=== PATIENT | female | born 1960 | race Two or more races ===

== ENCOUNTER 2018-04-26 05:35 | Emergency (ER) | payer OTHER ==
[~2018-04-26] VITALS: Ht 149.9 cm; Wt 72.6 kg
[~2018-04-26 05:35] MED LIST: DEPAKOTE ER250 MG; METFORMIN HCL500 MG; PRISTIQ ER50 MG PO
[2018-04-26] MEDS ORDERED: COZAAR25 MG (05:45)
[2018-04-26] MEDS ORDERED: TUSSI-PRES LIQ118 ML PO (10:40)
[2018-04-26] MEDS ORDERED: ALBUTEROL2.5 MG/3 M IH (10:40)
[2018-04-26] MEDS ORDERED: OSEL75CA PO (10:40)
== END 2018-04-26 11:19 | disposition home or self-care (01) ==
LOC: ER 05:35
DX: J11.1 Influenza due to unidentified influenza virus with other respiratory manifestations (principal); J40 Bronchitis, not specified as acute or chronic

== ENCOUNTER 2019-06-15 11:11 | Emergency (ER) | payer OTHER ==
[~2019-06-15] VITALS: Ht 149.9 cm; Wt 72.6 kg
[~2019-06-15 11:11] MED LIST changes: +ALBUTEROL2.5 MG/3 M IH; +COZAAR25 MG; +OSEL75CA PO; +TUSSI-PRES LIQ118 ML PO
[2019-06-15] MEDS ORDERED: SORBUGEN NR 15474 ML (12:01)
== END 2019-06-15 16:47 | disposition home or self-care (01) ==
LOC: ER 11:11
DX: J45.901 Unspecified asthma with (acute) exacerbation (principal); J06.9 Acute upper respiratory infection, unspecified

== ENCOUNTER 2020-04-08 10:32 | Emergency (ER) | payer OTHER ==
[~2020-04-08] VITALS: Ht 149.9 cm; Wt 72.6 kg
[~2020-04-08 10:32] MED LIST changes: +SORBUGEN NR 15474 ML
== END 2020-04-08 14:58 | disposition home or self-care (01) ==
LOC: ER
DX: R51 Headache (principal); R42 Dizziness and giddiness; H66.92 Otitis media, unspecified, left ear

== ENCOUNTER → 2020-10-25 | Emergency (ER) | payer OTHER ==
[~2020-10-25] VITALS: Ht 149.9 cm; Wt 72.6 kg
[~2020-10-25] MED LIST changes: +KETO10TA2 PO; +PEPCID AC20 MG PO; +ZITHROMAX500 MG PO
== END | disposition home or self-care (01) ==
LOC: ER 09:53
DX: H60.8X3 Other otitis externa, bilateral (principal); J02.9 Acute pharyngitis, unspecified

== ENCOUNTER 2020-11-28 08:32 | Emergency (ER) | payer OTHER ==
[~2020-11-28] VITALS: Ht 149.9 cm; Wt 70.8 kg
== END 2020-11-28 11:24 | disposition home or self-care (01) ==
LOC: ER 08:32
DX: M79.7 Fibromyalgia (principal); M54.2 Cervicalgia; R07.89 Other chest pain; M54.5 Low back pain; M62.838 Other muscle spasm; M62.830 Muscle spasm of back

== ENCOUNTER 2020-12-22 09:37 | Inpatient (IN) | payer OTHER ==
[~2020-12-22] VITALS: Ht 149.9 cm; Wt 70.3 kg
--- NOTE | 2020-12-22 09:50 | NUR ---
PACIENTE ALERTA Y ORIENTADA EN HANANE AUBREY ESFERAS, REFIERE TOS SECA, DOLOR ESPALDA JANINE Y MEDIA, MOLESTIA EN EL PECHO. PACIENTE REFIERE QUE LOS SINTOMAS COMENZARON LUEGO DE RECIBIR 2DA DOSIS DE VACUNA MODERNA CONTRA EL COVID 19 EL .
[2020-12-22] MEDS ORDERED: METFORMIN HCL500 M3 PO (09:53)
--- NOTE | 2020-12-22 10:35 | NUR ---
PACIENTE EVALUADA POR DRA. FERRIS. MRS. SORTO RECIBE A PACIENTE EN UNIDAD DE CHEST PAIN. SORTO COLECTA MUESTRAS DE LABORATORIO E INSERTA CATETER VENOSO A PACIENTE SIGUIENDO TECNICAS ASEPTICAS. SE CONECTA A PACIENTE A MONITOR CARDIACO Y OXIMETRIA DE PULSO. SE ORIENTA A PACIENTE SOBRE TRATAMIENTO. SORTO ADMINISTRA MEDICAMENTOS SHAN DIRECCTRICES MEDICAS, SE EDUCA A PACIENTE SOBRE LA INDICACION DE LOS MISMOS. SE MANTIENE A PACIENTE BAJO OBSERVACION POR CAMBIOS. PACIENTE CONSULTADA CON EL DR. PRESTON PAYAN.
--- NOTE | 2020-12-22 11:45 | NUR ---
SE LLEVA A PTE PARA REALIZAR PROCEDIMIENTO DE ECHO, SE LLEVA PTE EN KATHRYN POR ESCORTA CON MONITOR CARDIACO. NIKI YOON REFIERE DEJAR PTE EN ESTUDIO.
--- NOTE | 2020-12-22 15:04 | NUR ---
SE RECIBE PACIENTE FEMINA DE 60 ANOS DE EDAD UBICADA EN ANGELA DE EMERGENCIAS EN AREA DE CHEST PAIN EN CAMA CON BARABDAS ELEVADAS. PACIENTE ES ENTREGADA POR RN- SORTO CUAL ORIENTA QUE PACIENTE LLEGO A ANGELA POR DOLOR DE PECHO Y DIFICULTAD AL RESPIRAR. AL MOMENTO PACIENTE SE RECIBE ALERTA, CONCIENTE Y ORIENTADA X3 LA MISMA AMBULA SIN DIFICULTAD Y ESTA EN ESPERA DE MEDICNA INTERNA. PACIENTE MANTIENE AMIODARONE BAJANDO A 33ML/HRS Y EL MISMO COMENZO A LAS 14:30. SE MANTIENE A PACIENTE EN OBSERVACION POR CAMBIOS EN CONDICION Y CONTINUIDAD DE CHRIS. PACIENTE SE MANTIENE CONECTADA A MONITOR CARDIACO Y OXIMETRIA DE PULSO.
[2020-12-23] MEDS ORDERED: ATORVASTATIN CA10 MG (11:53)
[2020-12-23] MEDS ORDERED: LOSARTAN-HCTZ1 EACH (11:53)
[2020-12-26] MEDS ORDERED: IPRATROPIU0.2 MG/1 M IH (09:51)
[2020-12-26] MEDS ORDERED: BUDESONIDE0.5 MG/2 M IH (09:52)
[2020-12-26] MEDS ORDERED: TUSSIN DM LIQU118 ML PO (09:52)
[2020-12-26] MEDS ORDERED: TOPROL XL25 M1 PO (09:55)
[2020-12-26] MEDS ORDERED: ELIQUIS5 MG PO (09:55)
[2020-12-26] MEDS ORDERED: FLECAINIDE ACE100 MG PO (09:55)
== END 2020-12-26 11:42 | disposition home or self-care (01) | DRG 309 ==
LOC: ER 09:37 → SEC-K 19:26 → O/R 12-23 11:42 → SEC-K 12-23 12:00 → SURH 12-24 14:32
PROVIDERS: ADMIT Internal Medicine; ATTEND Internal Medicine
PROC: B24BYZZ Ultrasonography of Heart with Aorta using Other Contrast (ICD-10-PCS; principal; 2020-12-22)
PROC: BW24ZZZ Computerized Tomography (CT Scan) of Chest and Abdomen (ICD-10-PCS; 2020-12-22)
PROC: 4A12X4Z Monitoring of Cardiac Electrical Activity, External Approach (ICD-10-PCS; 2020-12-24)
DX: I48.91 Unspecified atrial fibrillation (principal); J45.901 Unspecified asthma with (acute) exacerbation; J91.8 Pleural effusion in other conditions classified elsewhere; J10.1 Influenza due to other identified influenza virus with other respiratory manifestations; J20.9 Acute bronchitis, unspecified; I10 Essential (primary) hypertension; E11.9 Type 2 diabetes mellitus without complications; Z20.822 Contact with and (suspected) exposure to COVID-19

== ENCOUNTER 2021-01-04 10:43 | Emergency (ER) | payer OTHER ==
[~2021-01-04] VITALS: Ht 149.9 cm; Wt 70.3 kg
[~2021-01-04 10:43] MED LIST changes: +ATORVASTATIN CA10 MG; +BUDESONIDE0.5 MG/2 M IH; +ELIQUIS5 MG PO; +FLECAINIDE ACE100 MG PO; +IPRATROPIU0.2 MG/1 M IH; +LOSARTAN-HCTZ1 EACH; +METFORMIN HCL500 M3 PO; +TOPROL XL25 M1 PO; +TUSSIN DM LIQU118 ML PO
[2021-01-04] MEDS ORDERED: NORFLEX100MG PO (13:18)
== END 2021-01-04 13:22 | disposition home or self-care (01) ==
LOC: ER 10:43
DX: M54.2 Cervicalgia (principal); M25.512 Pain in left shoulder; M79.602 Pain in left arm

== ENCOUNTER 2022-07-01 15:16 | Emergency (ER) | payer OTHER ==
[~2022-07-01] VITALS: Ht 149.9 cm; Wt 70.3 kg
[~2022-07-01 15:16] MED LIST changes: +NORFLEX100MG PO
== END 2022-07-01 20:49 | disposition home or self-care (01) ==
LOC: ER 15:16
DX: J10.1 Influenza due to other identified influenza virus with other respiratory manifestations (principal); E11.9 Type 2 diabetes mellitus without complications; Z79.84 Long term (current) use of oral hypoglycemic drugs

== ENCOUNTER 2024-11-05 10:31 | Emergency (ER) | payer OTHER ==
[~2024-11-05] VITALS: Ht 149.9 cm; Wt 68.0 kg
[2024-11-05] MEDS ORDERED: BUTALB/ACETAMINOPHEN/CAFFEINE 1 TAB TABLET PO ONE (11:45)
[2024-11-05] MEDS ORDERED: ONDANSETRON HCL 2 MG/ML VIAL IV ONE (11:45)
[2024-11-05] MEDS ORDERED: FAMOtidine 10 MG/ML (4ML VIAL) IV PUSH ONE (11:45)
[2024-11-05 12:14] LABS: HEMATOCRIT 41.1 % (36.0-45.00); HEMOGLOBIN 13.8 g/dL (12.0-15.00); MEAN CELL VOLUME 81.5 fL (80.00-100.00); MEAN CORPUSCULAR HEMOGLOBIN 27.3 pg (27.00-32.0); MEAN CORPUSCULAR HGB CONC 33.5 g/dl (32.0-36.0); PLATELET COUNT 497 K/uL (150-450); RED BLOOD COUNT 5.04 M/uL (4.00-6.00); RED CELL DISTRIBUTION WIDTH 16.5 % (11.5-14.5)
[2024-11-05] MEDS ORDERED: PANTOPRAZOLE SODIUM 40 MG/VIAL VIAL IV ONE (12:15)
[2024-11-05 12:36] LABS: PARTIAL THROMBOPLASTIN TIME 30.5 SECONDS (22.0-34.0)
[2024-11-05 12:38] LABS: ALBUMIN 3.7 gm/dL (3.4-5.0); BILIRUBIN TOTAL 0.18 mg/dL (0.3-1.2); CALCIUM 9.6 mg/dL (8.5-10.1); CREATININE SERUM 0.67 mg/dL (0.55-1.02); GFR 88.33; POTASSIUM 4.61 mEq/L (3.5-5.1); TOTAL PROTEIN 8.7 gm/dL (6.4-8.2)
[2024-11-05 12:45] LABS: PROTHROMBIN TIME 10.9 SECONDS (9.0-11.5)
[2024-11-05] MEDS ORDERED: FAMOTIDINE/PF 20 MG/2 ML VIAL IV PUSH ONE (12:45)
[2024-11-05 14:41] LABS: PH,URINE 7.5 (5.0-8.0); URINE APPEARANCE Clear; URINE BILIRRUBIN Negative (NEGATIVE); URINE BLOOD Negative; URINE COLOR Yellow; URINE GLUCOSE Negative (NEGATIVE); URINE KETONE 15 (NEGATIVE); URINE LEUKOCYTE Negative; URINE NITRATE Negative; URINE PROTEIN Negative (NEGATIVE)
[2024-11-05 14:42] LABS: URINE BACTERIA 710.9 uL (0.0-1933); URINE EPITHELIAL CELLS 29.1 uL (0.0-38.8); URINE RBC 2.9 uL (0.0-20.8); URINE WBC 22.4 uL (0.0-23.2)
[2024-11-05 15:20] LABS: URINE CAST 0.29 uL (0.0-1.40)
[2024-11-05] MEDS ORDERED: PEPCID AC20 MG PO (15:24)
[2024-11-05] MEDS ORDERED: ZOFRAN8 MG PO (15:24)
[2024-11-05] MEDS ORDERED: DICY20TA PO (15:24)
== END 2024-11-05 15:40 | disposition home or self-care (01) ==
LOC: ER 10:31
PROVIDERS: General Practice
DX: K29.70 Gastritis, unspecified, without bleeding (principal); E11.9 Type 2 diabetes mellitus without complications; Z79.84 Long term (current) use of oral hypoglycemic drugs
CPT/HCPCS: 36415; 96365; 99283; J2405; J3490